=== PATIENT | male | born 1980 | race Caucasian/White ===

== ENCOUNTER → 2018-12-18 09:16 | Outpatient (CLI) | payer OTHER, SELFPAY ==
--- NOTE | 2018-12-18 09:21 | DI.RAD.S_ITS ---
PROCEDURE: XR FOOT LT MIN 3V INDICATIONS: crush injury, pain and swelling, r/o fx TECHNIQUE: 3 views of the foot were acquired. COMPARISON: [facility], , FOOT 3V RIGHT, 06/11/2015, 12:20. FINDINGS: Bones: No fractures or dislocations. No widening of the Lisfranc joint on these nonweightbearing radiographs. No suspicious bony lesions. Well-circumscribed fragmented fibular sesamoid bone. Soft tissues: No tibiotalar joint effusion. Mild swelling over the dorsal aspect of the midfoot. Or Achilles tendon appears normal. IMPRESSION: No acute osseous abnormality. Dictated by: Bob Meza M.D. on 12/18/2018 at 9:37 Approved by: Bob Meza M.D. on 12/18/2018 at 9:39
== END ==
PROVIDERS: PCP Family Medicine; Visit Provider Physician Assistant
DX: S97.82XA Crushing injury of left foot, initial encounter (principal); X58.XXXA Exposure to other specified factors, initial encounter
CPT/HCPCS: 73630

== ENCOUNTER 2022-03-07 22:54 | Emergency (ER) | payer OTHER, SELFPAY ==
[2022-03-07 22:59] VITALS: BP 157/86; PULSE 76; RESP 18; TEMP 36.4; O2SAT 97; BMI 28.8
--- NOTE | 2022-03-07 23:54 | ED_ITS ---
HPI - Ear Problem General Chief complaint: Ear Stated complaint: pain left ear/sinus/jaw x2 days Time Seen by Provider: 03/07/22 23:54 Source: patient Mode of arrival: Ambulatory Limitations: no limitations History of Present Illness HPI Narrative: This is a 41-year-old male with no reported medical issues who is had left ear pain for the past 2 days which he states radiates a little bit to his jaw as well. Patient states pain started in his ear. He states it has not been decreased in sound, he does have issues he states with ear wax and has been irrigated on both sides several times in the past. He tried ibuprofen, aspirin and Tylenol and pain will wax and wane intensity but he is unable to sleep tonight so presents for evaluation. Denies swelling, denies any skin changes, no redness, no warmth, no fevers. Denies nausea or vomiting. No throat discomfort or drainage. Patient states he is had a little bit of nasal congestion recently. He denies any cough or cold. He denies any other symptoms. No dizziness or vomiting. Related Data Previous Rx's Medication Instructions Recorded [id number] 3.5 4 drp EAR-LEFT QID 7 days #10 mL 03/08/22 mg/mL-10,000 unit/mL-1 % ear solution Allergies Allergy/AdvReac Type Severity Reaction Status Date / Time No Known Drug Allergies Allergy Verified 12/18/18 10:44 Review of Systems Review of Systems ROS Unobtainable: All systems reviewed & are unremarkable except as noted in HPI and below Patient History Social History Smoking Status: Never smoker Smoking Status: Never smoker alcohol intake frequency: 0-2 drinks per day Substance Use Type: marijuana Exam Narrative Exam Narrative: GEN: well nourished, well appearing male, alert and oriented x 3, patient appears to be in mild distress. HEENT: Atraumatic, pupils are equal round reactive to light, extraocular movements are intact, nares are clear, patient cerumen on the right, unable to visualize TM, patient has cerumen on the left was able to extract about half but unable to visualize TM, patient does not have any pain with movement of the tragus, no pain with movement of the pinna, no swelling or erythema of the canal is appreciated from what I can visualize,Throat is clear without any exudates, erythema, tonsillar enlargement or uvular deviation HEART: Regular rate and rhythm without murmur, clicks, rubs. LUNGS:Lungs clear to auscultation, no wheezes, rales, crackles, chest moves symmetrically ABD:bowel sounds normal, soft, non-tender, no guarding, rebound, rigidity, no masses noted, no hepatosplenomegaly MSCL: Non-tender, no muscle atrophy, muscles strength 5/5 upper and lower extremities, full range of motion, normal gait NEURO:CN 2-12 intact, sensation normal Initial Vital Signs Initial Vital Signs: Vital Signs Temperature 97.6 F 03/07/22 22:59 Pulse Rate 76 03/07/22 22:59 Respiratory Rate 18 03/07/22 22:59 Blood Pressure 157/86 H 03/07/22 22:59 Pulse Oximetry 97 03/07/22 22:59 Oxygen Delivery Method 03/07/22 22:59 Course Orders Ordered: Discontinued Medications Hydrocodone Bitart/Acetaminophen (Hydrocodone/Acet 5/325 Prepack) 1 bottle MISC SEEINSTR ONE Stop: 03/07/22 23:55 Last Admin: 03/08/22 00:04 Dose: 1 bottle Documented By: JO Carbamide Peroxide (Carbamide Peroxide Otic 15 Ml) 4 drops EAR-LEFT NOW ONE Stop: 03/08/22 00:08 Last Admin: 03/08/22 00:11 Dose: 4 drops Documented By: FATOUMATA Neomycin/Polymyxin/Hydrocortisone (Neomy/Polym B/Hc Otic 10 Ml) 4 drops EAR-L EFT NOW ONE Stop: 03/08/22 01:15 Last Admin: 03/08/22 01:17 Dose: Not Given Documented By: JO Reevaluation(s) Reevaluation #1: Patient was irrigated additionally by nursing and had cerumen on recheck patient's TM intact, there is good light reflex no erythema of the eardrum itself no sign of otitis media. There is some irritation of the canal at the base which is more likely irritation and not infection. Time: 01:15 Vital Signs Vital signs: Vital Signs - 8 hr 03/07/22 22:59 03/08/22 01:26 Temperature 97.6 F Pulse Rate 76 68 Respiratory Rate 18 Blood Pressure 157/86 H 133/92 H Pulse Oximetry 97 97 Oxygen Delivery Method Room Air Room Air Medical Decision Making MDM Narrative Medical decision making narrative: This is a 41-year-old male with left ear pain for the past 2 days on examination appears to be impacted was able to remove some with curette but required irrigation as well. Your was irrigated in its entirety able to see the TM quite well and there is no signs of infection or at least otitis media. There is some irritation of the canal adjacent Discharge Plan Departure Patient Disposition: Home Clinical Impression: Cerumen impaction Instructions: Cerumen Impaction Activity Restrictions/Additional Instructions: Follow up with for recheck if your pain has not resolved over the next 24-48 hours. I would recommend using Debrox drops or similar in your ear and irrigating with warm saline if you have future impactions or suspect that you have them to keep your ear canals from being impacted by cerumen (earwax) The canal is slightly irritated it is likely not infected but you can use 4 drops to the left ear 4 times daily while awake for 7 days if your pain is persisting. Please return for worsening pain, bloody drainage, loss or decreased hearing, swelling of your ear, face, or other new or concerning changes Prescriptions: New [id number]-[id number]-RJ 3.5-10,000-1 mg/mL-unit/mL-% solution 4 drp EAR-LEFT QID 7 Days Qty: 10 0RF Referrals: Priya Maldonado MD [Primary Care Provider] -
[2022-03-08] MEDS: HYDROCODONE/ACET 5/325 PREPACK 1 BOTTLE MISC (00:04)
[2022-03-08] MEDS: CARBAMIDE PEROXIDE OTIC 15 ML 4 DROPS EAR-LEFT (00:11)
[2022-03-08 01:26] VITALS: BP 133/92; PULSE 68; O2SAT 97
== END 2022-03-08 01:27 | disposition home or self-care (01) ==
PROVIDERS: Emergency Provider Emergency Medicine; PCP Family Medicine
DX: H61.22 Impacted cerumen, left ear (principal)
CPT/HCPCS: 99282

== ENCOUNTER 2024-07-19 07:18 | Observation (INO) | payer OTHER, SELFPAY ==
[2024-07-19] VITALS (23 sets, daily range): BP systolic 97–155; BP diastolic 60–103; PULSE 76–129; RESP 16–24; TEMP 36.1–39.1; O2SAT 92–99; BMI 33.5; BMI 29.5
--- NOTE | 2024-07-19 | PATH_ITS ---
[facility] Accession Number: [id number] No. of containers..01 Tissue . 01 Material submitted: . appendix - APPENDIX . 01 Diagnosis: APPENDIX, APPENDECTOMY: Acute suppurative appendicitis and reactive changes. Negative for dysplasia and malignancy. MRV 07/24/2024 1250 Local . 01 Electronically signed: . Kami Holt MD, Pathologist NPI- [id number] . 01 Gross description: . Received in formalin with two identifiers and appendix, is a lew-bernal, vermiform appendix, 11.4 x 1.1 cm with mesoappendix extending out to 3.2 cm. The margin is inked blue. The lumen contains red-brown, semisolid to liquid fecal material. The lumen measures up to 0.9 cm in greatest dimension. The tee average 0.1 cm thick with no perforation or lesions identified. Mine Supervisor sections to include the margin, entire bisected distal tip, and cross-section are submitted in A1. ([id number]) /MRV 07/20/2024 1619 Local . 01 Pathologist provided ICD-10: K35.80 . 01 CPT . 200303 Specimen Comment: A courtesy copy of this report has been sent to [facility] Pathology Performed at: [address] [facility], [place], [place] [id number] MD Salvador Obregon MD Phone: [phone]
--- NOTE | 2024-07-19 07:27 | ED_ITS ---
HPI - Abdominal Pain General Chief Complaint: Abdominal Pain Stated Complaint: Stomach pain ,SOB Time Seen by Provider: 07/19/24 07:21 History of Present Illness HPI narrative: Patient awoke yesterday morning with reproducible right lower quadrant pain that is migrated suprapubic. Has been urinating more than usual. However, no hematuria. No fever chills. Did have nausea and vomiting. No testicular or penile pain. Denies any abdominal surgical history. There is reproducible McBurney point tenderness. No back pain or flank pain. Related Data Home Medications Medication Instructions Recorded Confirmed omeprazole 20 mg capsule,delayed 20 mg PO DAILY 07/19/24 07/19/24 release Previous Rx's Medication Instructions Recorded amoxicillin 500 mg-potassium 1 tab PO Q12H #10 tabs 07/20/24 clavulanate 125 mg tablet (Augmentin) hydrocodone 5 mg-acetaminophen 325 1 tab PO Q8H PRN pain #10 tabs 07/20/24 mg tablet Allergies Allergy/AdvReac Type Severity Reaction Status Date / Time No Known Drug Allergies Allergy Verified 12/18/18 10:44 Review of Systems Review of Systems Narrative: GENERAL: Negative chills, fatigue, malaise, fever, sweats. HEENT: Negative sinus pain, ear pain, sore throat RESPIRATORY: Negative dyspnea, cough CARDIOVASCULAR: Negative chest pain, palpitations GASTROINTESTINAL: Positive vomiting, nausea, abdominal pain : Negative dysuria, positive frequency, negative hematuria MUSCULOSKELETAL: Negative muscle or bony pain SKIN: Negative rash, skin lesions NEUROLOGIC: Negative weakness, numbness ROS Unobtainable: All systems reviewed & are unremarkable except as noted in HPI and below Patient History Social History household members: spouse and children alcohol intake: current alcohol intake frequency: 0-2 drinks per day Exam Narrative Exam Narrative: GENERAL: in no distress, not toxic not dyspneic HEAD: Normocephalic. EYES: Pupils equal round ENT: Mucous membranes moist. NECK: Trachea midline. CARDIOVASCULAR: Regular rate and rhythm RESPIRATORY: Clear to auscultation. Breath sounds equal bilaterally. No wheezes, rales, or rhonchi. GASTROINTESTINAL: Abdomen soft, reproducible McBurney point tenderness, no peritoneal signs no guarding or rebound. No pain out of portion exam. EXTREMITIES: No gross deformities. BACK: No flank tenderness. NEURO: AOx4. Clear speech SKIN: Warm and dry PSYCH: Not anxious, is cooperative Initial Vital Signs Initial Vital Signs: Vital Signs Pulse Rate 129 H 07/19/24 07:20 Respiratory Rate 18 07/19/24 07:20 Pulse Oximetry 98 07/19/24 07:20 Oxygen Delivery Method Room Air 07/19/24 07:20 Course Orders Ordered: Discontinued Medications Acetaminophen (Acetaminophen 325 Mg Tablet) 650 mg PO Q6H MARCELLA Last Admin: 07/19/24 13:37 Dose: Not Given Documented By: HINAK Acetaminophen (Acetaminophen 325 Mg Tablet) 650 mg PO Q6H PRN PRN Reason: Fever/Mild Pain (1-3) Last Admin: 07/19/24 23:17 Dose: 650 mg Documented By: AT Hydrocodone Bitart/Acetaminophen (Hydrocodone/Acet 5/325 Tablet) 1 tab PO Q4H PRN PRN Reason: Pain, Moderate (4-6) Hydrocodone Bitart/Acetaminophen (Hydrocodone/Acet 5/325 Tablet) 2 tab PO Q4H PRN PRN Reason: Pain, Severe (7-10) Hydrocodone Bitart/Acetaminophen (Hydrocodone/Acet 5/325 Tablet) 1 tab PO Q4HR PRN PRN Reason: Pain, Moderate (4-6) Last Admin: 07/20/24 16:28 Dose: 1 tab Documented By: Admin: 07/20/24 10:47 Dose: 1 tab Documented By: SIMBA Hydrocodone Bitart/Acetaminophen (Hydrocodone/Acet 5/325 Tablet) 2 tab PO Q4HR PRN PRN Reason: Pain, Severe (7-10) Benzocaine (Benzocaine/Menthol 1 Maria Fernanda Pkt) 1 each PO PRN PRN PRN Reason: Sore Throat Bupivacaine HCl (Bupivacaine 0.5% (Pf) 30 Ml Vial) 30 ml INJ NOW ONE Stop: 07/19/24 11:12 Last Admin: 07/19/24 11:12 Dose: 30 ml Documented By: RT Enoxaparin Sodium (Enoxaparin 40 Mg/0.4 Ml Syringe) 40 mg SUBCUT DAILY MARCELLA Hydromorphone HCl (Hydromorphone 1 Mg Inj) 0 mg IV Q5MIN PRN PRN Reason: Pain, Moderate (4-6) Hydromorphone HCl (Hydromorphone 1 Mg Inj) 0 mg IV Q5MIN PRN PRN Reason: Pain, Severe (7-10) Hydromorphone HCl (Hydromorphone 1 Mg Inj) 0 mg IV Q5MIN PRN PRN Reason: Pain, Mild (1-3) Hydromorphone HCl (Hydromorphone 0.5 Mg Inj) 0.5 mg IV Q2H PRN PRN Reason: Pain, Severe (7-10) Hydromorphone HCl (Hydromorphone 0.5 Mg Inj) 0.5 mg IV Q2H PRN PRN Reason: Pain, Severe (7-10) Sodium Chloride (Normal Saline 0.9%) 1,000 mls @ 1,000 mls/hr IV BOLUS ONE Stop: 07/19/24 08:24 Last Infusion: 07/19/24 08:55 Dose: Infused Documented By: Admin: 07/19/24 07:40 Dose: 1,000 mls/hr Documented By: LACIE Piperacillin Sod/Tazobactam (Sod 4.5 gm/ Sodium Chloride) 100 mls @ 200 mls/hr IV NOW ONE Stop: 07/19/24 09:01 Last Infusion: 07/19/24 09:57 Dose: Infused Documented By: Admin: 07/19/24 09:20 Dose: 200 mls/hr Documented By: LACIE Lactated Ringer's (Lactated Ringers) 1,000 mls @ 42 mls/hr IV CONT MARCELLA Last Admin: 07/19/24 10:26 Dose: 42 mls/hr Documented By: ISMAEL Acetaminophen (Ofirmev) 1,000 mg in 100 mls @ 400 mls/hr IV NOW ONE Stop: 07/19/24 10:38 Last Infusion: 07/19/24 10:40 Dose: Infused Documented By: Admin: 07/19/24 10:25 Dose: 400 mls/hr Documented By: ISMAEL Piperacillin Sod/Tazobactam (Sod 3.375 gm/ Sodium Chloride) 100 mls @ 25 mls/hr IV NOW ONE Stop: 07/19/24 11:16 Last Infusion: 07/19/24 11:15 Dose: Infused Documented By: Admin: 07/19/24 10:55 Dose: 25 mls/hr Documented By: SAAD Lactated Ringer's (Lactated Ringers) 1,000 mls @ 125 mls/hr IV CONT MARCELLA Last Admin: 07/19/24 13:38 Dose: Not Given Documented By: LILLIAN Piperacillin Sod/Tazobactam (Sod 3.375 gm/ Sodium Chloride) 100 mls @ 25 mls/hr IV Q8H MARCELLA Dextrose/Lactated Ringer's (Dextrose 5%-Lactated Ringers) 1,000 mls @ 125 mls/hr IV CONT MARCELLA Last Infusion: 07/20/24 00:00 Dose: Infused Documented By: Admin: 07/19/24 13:26 Dose: 125 mls/hr Documented By: LILLIAN Piperacillin Sod/Tazobactam (Sod 3.375 gm/ Sodium Chloride) 100 mls @ 25 mls/hr IV Q8H [facility] Last Infusion: 07/20/24 16:26 Dose: Infused Documented By: Admin: 07/20/24 12:14 Dose: 25 mls/hr Documented By: Infusion: 07/20/24 08:28 Dose: Infused Documented By: Admin: 07/20/24 04:05 Dose: 25 mls/hr Documented By: Infusion: 07/20/24 02:28 Dose: Infused Documented By: Admin: 07/19/24 21:33 Dose: 25 mls/hr Documented By: ROSA Ketorolac Tromethamine (Ketorolac 30 Mg/Ml Vial) 15 mg IV NOW ONE Stop: 07/19/24 07:26 Last Admin: 07/19/24 07:40 Dose: 15 mg Documented By: LACIE Naloxone HCl (Naloxone 0.4 Mg/Ml Vial) 0.2 mg IV Q2MIN PRN PRN Reason: Opiate Reversal Ondansetron HCl (Ondansetron 4 Mg/2 Ml Inj) 4 mg IV NOW ONE Stop: 07/19/24 07:26 Last Admin: 07/19/24 07:40 Dose: 4 mg Documented By: LACIE Ondansetron HCl (Ondansetron 4 Mg/2 Ml Inj) 4 mg IV Q4HR PRN PRN Reason: Nausea And Vomiting Oxycodone HCl (Oxycodone Ir 5 Mg Tablet) 5 mg PO PACUNOW PRN PRN Reason: Mild or moderate pain Vital Signs Vital signs: Vital Signs - 8 hr 07/19/24 07:20 07/19/24 07:21 07/19/24 07:27 Temperature 98 F Pulse Rate 129 H 118 H Respiratory Rate 18 20 Blood Pressure 139/90 139/90 Pulse Oximetry 98 95 Oxygen Delivery Method Room Air Room Air 07/19/24 07:42 07/19/24 07:42 07/19/24 08:00 Temperature Pulse Rate 107 H 110 H Respiratory Rate 18 Blood Pressure 139/89 Pulse Oximetry 95 94 Oxygen Delivery Method Room Air Room Air 07/19/24 08:30 07/19/24 08:48 Temperature Pulse Rate 102 H Respiratory Rate Blood Pressure 123/60 Pulse Oximetry 94 Oxygen Delivery Method Room Air MDM - Abdominal Pain Lab Data 07/20/24 05:51 07/20/24 05:51 Labs: Lab Results 07/19/24 Range/Units 07:30 WBC 18.0 H (4.5-11.0) X10^3/uL RBC 5.27 (4.5-5.9) X10^6/uL Hgb 16.8 (13.5-17.5) g/dL Hct 47.5 (41-53) % MCV 90.0 (80-100) fL MCH 31.8 (26-34) PG MCHC 35.3 (30-36) % RDW 13.1 (11.6-14.8) % Plt Count 298 (150-400) X10^3/uL Neut % (Auto) 83.8 H (50-75) % Lymph % (Auto) 10.1 L (25-40) % [place] % (Auto) 5.7 (3-14) % Eos % (Auto) 0.1 L (2-4) % Baso % (Auto) 0.3 (0-2) % Neut # (Auto) 00798 H (2483-3533) /uL Lymph # (Auto) 1800 (6216-3165) /uL [place] # (Auto) 1000 H (0-900) /uL Eos # (Auto) 0 (0-450) /uL Baso # (Auto) 0 (0-100) /uL Sodium 140 (137-145) mmol/L Potassium 3.9 (3.4-5.1) mmol/L Chloride 104 (98-107) mmol/L Carbon Dioxide 24 (22-32) mmol/L BUN 10 (9-20) mg/dL Creatinine 0.99 (0.66-1.25) mg/dL Estimated GFR > 60 (>60) mL/min BUN/Creatinine Ratio 10.1 (6-22) Glucose 131 H (70-99) mg/dL Calcium 9.7 (8.4-10.2) mg/dL Total Bilirubin 1.3 (0.2-1.3) mg/dL AST 29 (17-59) IU/L ALT 89 H (<50) IU/L Alkaline Phosphatase 65 (38-126) U/L Total Protein 8.0 (6.3-8.2) g/dL Albumin 4.7 (3.5-5.0) g/dL Globulin 3.3 (1.7-4.1) g/dL Albumin/Globulin Ratio 1.4 (1.0-2.8) Imaging Data CT scan - abdomen/pelvis: Radiologist's Impression: [place] [address] CT Scan Report Signed Patient: Surya Hernandes MR#: [id number] : 1980 Acct:[id number] Age/Sex: 44 / M Date of Service: 07/19/24 Loc: ED Accession Number: [id number] Procedure: CT abdomen pelvis w con Ordering Provider: Giuseppe Lopez MD PROCEDURE: CT ABDOMEN PELVIS W CON INDICATIONS: IV contrast only/right lower quadrant pain TECHNIQUE: After the administration of intravenous contrast, axial sections acquired from the lung bases to the pubic symphysis. Coronal and sagittal reformats were performed. For radiation dose reduction, the following was used: automated exposure control, adjustment of mA and/or kV according to patient size. COMPARISON: None. FINDINGS: Image quality: Diagnostic. Lower Chest: No significant findings. ABDOMEN: Liver: Moderate hepatic steatosis. Suspected vascular shunt versus small hemangioma with vascular shunt in segment 6 of the liver. Smooth contour. Early edge blunting. Gallbladder: No radiopaque gallstones or wall thickening. Biliary ducts: No biliary dilation. Pancreas: No ductal dilation. Spleen: Size is within normal limits. Adrenal Glands: No adrenal nodules. Kidneys and Ureters: No hydronephrosis. No solid mass. No complex renal cystic lesion which requires follow up. Stomach and Bowel: The appendix is dilated, with diffuse wall thickening. Diameter measures up to 1.1 centimeter. Obstructing appendicoliths at the base measuring 1 centimeter (series 2, image 129). There is a small section of the wall which does not demonstrate enhancement (series 2, image 147). Submucosal fat deposition within the terminal ileal wall. Peritoneum: Periappendiceal fat stranding. No adjacent free air. Ventral Wall: Small umbilical hernia containing fat. Abdominal Nodes: No retroperitoneal or mesenteric adenopathy by size criteria. Vessels: Aorta and inferior vena cava are normal in size. PELVIS: Pelvic Organs: Unremarkable. Bladder: No bladder wall thickening, accounting for underdistention. Pelvic Nodes: No enlarged lymph nodes. Miscellaneous: No inguinal hernias are seen. Bones: No aggressive osseous abnormality. IMPRESSION: Acute appendicitis caused by an obstructing appendicolith measuring 1 centimeters. A small section of the wall does not demonstrate enhancement, concerning for early necrosis. No evidence of perforation or abscess at this time. At least moderate hepatic steatosis. Submucosal fat deposition within the terminal ileum wall. Findings can be seen in the setting of chronic inflammatory bowel disease. Correlate with the current symptoms. Dictated by: Alex Pham M.D. on 07/19/2024 at 8:20 Approved by: Alex Pham M.D. on 07/19/2024 at 8:24 [facility] Narrative Medical decision making narrative: Patient awoke yesterday morning with reproducible right lower quadrant pain that is migrated suprapubic. Has been urinating more than usual. However, no hematuria. No fever chills. Did have nausea and vomiting. No testicular or penile pain. Denies any abdominal surgical history. There is reproducible McBurney point tenderness. No back pain or flank pain. After history and exam, CBC CMP urinalysis CT abdomen pelvis Toradol Zofran normal saline [facility] Medical records reviewed: No recent visit for this complaint Differential considered: Includes but not limited to appendicitis ureteral stone kidney stone UTI pyelonephritis colitis Lab Test results independently reviewed as above. Pertinent findings: WBC 18 Imaging studies independently reviewed: CT abdomen pelvis acute appendicitis Consultations: 9:00 a.m.. Spoke with General surgery, dr boyer, who will admit patient, NPO since 529 this morning Re-evaluations: 9:05 a.m.. Spoke with patient, at bedside, acute appendicitis is the diagnosis. They understand will need surgery today. NPO since 529 this morning Discussion: Appropriate for picture of acute appendicitis, antibiotics have been started. Pain is controlled. General surgery has been contacted Diagnosis: Acute appendicitis Discharge Plan Departure Patient Disposition: Admitted as Observation Clinical Impression: Acute appendicitis Qualifiers: Acute appendicitis type: unspecified acute appendicitis type Qualified Code(s): K35.80 - Unspecified acute appendicitis Admit Date/Time: 07/19/24 09:00 Admit Provider: Troy Boyer
[2024-07-19 07:40] LABS: Add Manual Diff / Slide Review NO; Basophils Absolute Auto 0 /uL (0-100); Basophils Percent Auto 0.3 % (0-2); Eosinophils Absolute Auto 0 /uL (0-450); Eosinophils Percent Auto 0.1 % (2-4); Hematocrit 47.5 % (41-53); Hemoglobin 16.8 g/dL (13.5-17.5); Lymphocytes Absolute Auto 1800 /uL (1100-4500); Lymphocytes Percent Auto 10.1 % (25-40); Mean Corpuscular HGB Conc 35.3 % (30-36); Mean Corpuscular Hemoglobin 31.8 PG (26-34); Monocytes Absolute Auto 1000 /uL (0-900); Monocytes Percent Auto 5.7 % (3-14); Neutrophils Absolute Auto 15100 /uL (1500-7000); Neutrophils Percent Auto 83.8 % (50-75); Platelet Count 298 X10^3/uL (150-400); Red Blood Cell Count 5.27 X10^6/uL (4.5-5.9); Red Cell Distribution Width 13.1 % (11.6-14.8)
[2024-07-19] MEDS: SODIUM CHLORIDE 0.9% 1,000 ML 1000 ML IV (07:40)
[2024-07-19] MEDS: KETOROLAC 30 MG/ML VIAL 15 MG IV (07:40)
[2024-07-19] MEDS: ONDANSETRON 4 MG/2 ML INJ IV (07:40)
[2024-07-19 07:50] LABS: Alanine Aminotransferase 89 IU/L (<50); Albumin 4.7 g/dL (3.5-5.0); Albumin Globulin Ratio 1.4 (1.0-2.8); Alkaline Phosphatase 65 U/L (38-126); Aspartate Aminotransferase 29 IU/L (17-59); BUN Creatinine Ratio 10.1 (6-22); Bilirubin Total 1.3 mg/dL (0.2-1.3); Blood Urea Nitrogen 10 mg/dL (9-20); Calcium 9.7 mg/dL (8.4-10.2); Carbon Dioxide 24 mmol/L (22-32); Chloride 104 mmol/L (98-107); Estimated Glomerular Filt Rate > 60 mL/min (>60); Globulin 3.3 g/dL (1.7-4.1); Glucose 131 mg/dL (70-99); HEMOLYSIS < 15 (0-50); Potassium 3.9 mmol/L (3.4-5.1); Sodium 140 mmol/L (137-145)
[2024-07-19] MEDS: PIPERACILLIN/TAZO 4.5 GM in SODIUM CHLORIDE 0.9% 100 ML IV (09:20)
[2024-07-19 09:26] LABS: Appearance Urine UA CLEAR; Bilirubin Urine UA NEGATIVE (NEGATIVE); Color Urine UA YELLOW; Glucose Urine UA NEGATIVE (Negative); Ketones Urine UA NEGATIVE (NEGATIVE); Leukocyte Esterase Urine UA NEGATIVE (NEGATIVE); Nitrite Urine UA NEGATIVE (Negative); Occult Blood Urine UA NEGATIVE (Negative); Protein Urine UA TRACE (Negative); pH Urine UA 6.5 (4.5-8.0)
--- NOTE | 2024-07-19 09:39 | PC.NURSE ---
blood cx x 1 set drawn via RAC PIV - no Dominic used
[2024-07-19 09:45] LABS: Bacteria Urine None Seen; Culture Indicated Urine Cult Not Indicated; RBC Urine None Seen (0-5/HPF); Squamous Epithelial Cell Urine 0-1 /HPF (0-5/HPF); Urine Volume 10mL (spun); WBC Urine 0-1/HPF (0-5/HPF)
[2024-07-19] MEDS: ACETAMINOPHEN IV 1,000 MG/100 ML VIAL 400 MG IV (10:25)
[2024-07-19] MEDS: LACTATED RINGERS 1,000 ML 42 ML IV (10:26)
--- NOTE | 2024-07-19 10:37 | SUR.HOLD ---
Oral temperature 102.3. Anesthesia notified; orders received for IV Tylenol.
--- NOTE | 2024-07-19 10:40 | P.HP_ITS ---
History of Present Illness History of Present Illness Chief complaint: Stomach pain ,SOB Narrative: 42-year-old male with 24 hour history of abdominal pain which localized to his right lower quadrant. He presented to the ED where he was febrile and having rigors. White count was [address] demonstrated an enlarged edematous appendix with periappendiceal inflammatory changes. He is admitted for definitive management. [facility] Social History household members: spouse Smoking Status: Never smoker Meds Home Medications and Allergies Home Medications Medication Instructions Recorded Confirmed Type omeprazole 20 mg capsule,delayed 20 mg PO DAILY 07/19/24 07/19/24 History release Allergies Allergy/AdvReac Type Severity Reaction Status Date / Time No Known Drug Allergies Allergy Verified 12/18/18 10:44 Review of Systems Review of Systems Narrative: Comprehensive review of systems negative to direct questioning with the exception previously mentioned chronic conditions. Exam Vital Signs (past 8 hours): - 07/19/24 07:20 07/19/24 07:21 07/19/24 07:27 Temperature 98 F Pulse Rate 129 H 118 H Respiratory Rate 18 20 Blood Pressure 139/90 139/90 Pulse Oximetry 98 95 Oxygen Delivery Method Room Air Room Air 07/19/24 07:42 07/19/24 07:42 07/19/24 08:00 Temperature Pulse Rate 107 H 110 H Respiratory Rate 18 Blood Pressure 139/89 Pulse Oximetry 95 94 Oxygen Delivery Method Room Air Room Air 07/19/24 08:30 07/19/24 08:48 07/19/24 09:13 Temperature Pulse Rate 102 H 100 H Respiratory Rate 18 Blood Pressure 123/60 Pulse Oximetry 94 95 Oxygen Delivery Method Room Air 07/19/24 09:14 07/19/24 09:14 07/19/24 09:30 Temperature Pulse Rate 100 H 114 H Respiratory Rate 18 Blood Pressure 125/87 Pulse Oximetry 95 97 Oxygen Delivery Method Room Air 07/19/24 09:39 07/19/24 09:40 07/19/24 09:40 Temperature 98.9 F Pulse Rate 109 H Respiratory Rate 18 Blood Pressure 155/103 H Pulse Oximetry 99 Oxygen Delivery Method 07/19/24 10:26 Temperature 102.3 F H Pulse Rate 123 H Respiratory Rate 24 Blood Pressure 136/90 Pulse Oximetry 94 Oxygen Delivery Method Room Air Oxygen Delivery Method Room Air Narrative Exam Narrative: In general this is well-nourished well-developed male alert and oriented x3 in no acute distress. Head is normocephalic and atraumatic. Neck is supple. Back is without CVA or spinous process tenderness. Lungs are clear to auscultation. Chest is symmetric nontender with normal inspiratory and expiratory excursion. Heart has a regular rate and rhythm with no murmur or gallop. Abdomen is soft with normal bowel sounds. No distention. McBurney's tenderness is in evidence. Extremities manifests full range of motion. Neurological exam is nonfocal. Objective Labs 07/19/24 07:30 07/19/24 07:30 Labs: Laboratory Results - last 24 hr 07/19/24 07/19/24 07:30 09:13 WBC 18.0 H RBC 5.27 Hgb 16.8 Hct 47.5 MCV 90.0 MCH 31.8 MCHC 35.3 RDW 13.1 Plt Count 298 Neut % (Auto) 83.8 H Lymph % (Auto) 10.1 L [place] % (Auto) 5.7 Eos % (Auto) 0.1 L Baso % (Auto) 0.3 Neut # (Auto) 41056 H Lymph # (Auto) 1800 [place] # (Auto) 1000 H Eos # (Auto) 0 Baso # (Auto) 0 Sodium 140 Potassium 3.9 Chloride 104 Carbon Dioxide 24 BUN 10 Creatinine 0.99 Estimated GFR > 60 BUN/Creatinine Ratio 10.1 Glucose 131 H Calcium 9.7 Total Bilirubin 1.3 AST 29 ALT 89 H Alkaline Phosphatase 65 Total Protein 8.0 Albumin 4.7 Globulin 3.3 Albumin/Globulin Ratio 1.4 Urine Color Yellow Urine Appearance Clear Urine pH 6.5 Ur Specific [place] 1.010 Urine Protein Trace H Urine Glucose (UA) Negative Urine Ketones Negative Urine Occult Blood Negative Urine Nitrate Negative Urine Bilirubin Negative Urine Urobilinogen 1.0 Ur Leukocyte Esterase Negative Urine RBC None seen Urine WBC 0-1/hpf Ur Squamous Epith Cells 0-1 /hpf Urine Bacteria None seen Ur Culture Indicated? Cult not indicated Vol Urine Centrifuged 10ml (spun) Assessment & Plan Assessment and plan (1) Acute appendicitis: Qualifiers: Acute appendicitis type: unspecified acute appendicitis type Qualified Code(s): K35.80 - Unspecified acute appendicitis Status: Acute Plan I have recommended a laparoscopic attempt at appendectomy. Alternatives, risks and benefits were discussed in detail. Questions were answered. The patient desires to proceed as I have outlined. We will accommodate him when an OR can be made available this morning. Time-Based Coding :: [TOTAL MINUTES] spent with patient and on the chart (including review of chart, obtaining history, exam, reviewing outside data, placing orders, documenting exam and treatment plan, and counseling patient) on [DATE]. PROFEE Furniture Mover Driver Document charge(s): Yes
[2024-07-19] MEDS: PIPERACILLIN/TAZO 3.375 GM in SODIUM CHLORIDE 0.9% 100 ML IV ×2 (10:55→21:33)
--- NOTE | 2024-07-19 11:01 | SUR.OPER ---
Supine on padded OR bed, head on pillow, left arm padded and tucked at side, right arm on padded OR arm board and secured, legs uncrossed, safety belt at thigh, tape over blanket over lower legs .
[2024-07-19] MEDS: BUPIVACAINE 0.5% (PF) 30 ML VIAL INJ (11:12)
--- NOTE | 2024-07-19 11:51 | P.OP_ITS ---
Operative Date/Time/Diagnoses Date of procedure: 07/19/24 Time of procedure: 10:57 Pre-op diagnosis: Acute appendicitis Post-op diagnosis: same Procedure & Clinicians Procedure: Laparoscopic appendectomy with repair of umbilical hernia Same procedure as scheduled: Yes Indications: Acute appendicitis Surgeon: Troy Boyer Click Yes if Unassisted: Yes Anesthesia Type: General Operative Notes Findings: Acute appendicitis. 1 cm umbilical hernia. Closure Type: primary Specimen(s): other (Vermiform appendix) Estimated Blood Loss (mL): 10 Procedure in detail: After obtaining informed consent properly identifying the patient, the patient was transported to the operating room and was placed on the table in the supine position. General endotracheal anesthesia was induced and the abdomen was prepped and draped in the usual sterile manner. Time-out protocol was observed. A 15 blade was used to make a 2.5 cm curvilinear supraumbilical incision. This was carried with cautery down along the umbilical stalk to the level of the abdominal wall fascia. During this dissection and umbilical hernia was noted the proceeded about senior living up the umbilical stalk. Traction sutures of 0 Vicryl were placed on either side of midline above the umbilicus and a peritoneotomy was made under direct vision. The fasciotomy was carried through the cephalad margin of the umbilical hernia and the hernial contents were reduced. Peritoneotomy was made under direct vision and a 10 mm Bolanos cannula was passed and was secured by inflating the balloon at its tip. Pneumoperitoneum was instilled. A 5 mm 30 degree angled laparoscope was passed through the Bolanos. The posterior surface of the abdominal wall was visualized and 2 additional 5 mm ports were placed under direct laparoscopic vision. The 1st of these was in the infraumbilical midline 2[address] the umbilicus to the pubis. The 2nd was placed 2 fingerbreadths left of midline, midway between the umbilicus and the 1st 5 mm port. The appendix was visualized. The mesoappendix was taken sharply with the Liga Sure and the dissection was carried down to the confluence of the appendiceal base and cecal wall. The 5 mm 30 degree angled scope was withdrawn from the Bolanos and was passed through the left lower quadrant port. An echelon stapler was passed through the Bolanos and was applied across the confluence of the appendiceal base and cecal wall, was closed and fired. The LigaSure was withdrawn from the Bolanos and passed from the field. An Endo-Catch specimen extractor was passed through the Bolanos and an Endo-Catch specimen extractor was passed into the peritoneal cavity. The specimen was bagged under direct laparoscopic vision. The Bolanos balloon was deflated and the Bolanos, Endo-Catch and specimen were withdrawn from the supraumbilical port site as a unit. The specimen was passed from the field and the Bolanos and 5 mm 30 degree angled scope were restored to their original positions. The right iliac fossa operative field was inspected in minute detail. Perfect hemostasis was obtained with the LigaSure. The pelvic cul-de-sac was visualized, was copiously irrigated and all irrigant was evacuated. All laparoscopic equipment was withdrawn under direct laparoscopic vision. Pneumoperitoneum was evacuated and ports were withdrawn. The supraumbilical fascial defect was closed with a running 0 Prolene stitch. Field blocks of 0.5% Marcaine were instilled into the skin wounds which were then closed with a series of inverted deep dermal 3-0 Vicryl sutures and Dermabond. Dressings were applied. The patient tolerated the procedure well and was transported to the recovery room extubated and awake. Complications: none Post-operative Condition: stable Plan for aftercare: Discharged home on tolerant of p.o. is a, pain control is adequate and bacteremia ruled out.
[2024-07-19] MEDS: DEXTROSE 5%-LACTATED RINGERS 1,000 ML 125 ML IV (13:26)
[2024-07-19] MEDS: ACETAMINOPHEN 325 MG TABLET 650 MG PO (23:17)
[2024-07-20] MEDS: PIPERACILLIN/TAZO 3.375 GM in SODIUM CHLORIDE 0.9% 100 ML IV ×2 (04:05→12:14)
[2024-07-20 06:12] LABS: Add Manual Diff / Slide Review NO; Basophils Absolute Auto 100 /uL (0-100); Basophils Percent Auto 0.8 % (0-2); Eosinophils Absolute Auto 100 /uL (0-450); Eosinophils Percent Auto 0.4 % (2-4); Hematocrit 39.7 % (41-53); Hemoglobin 13.8 g/dL (13.5-17.5); Lymphocytes Absolute Auto 2400 /uL (1100-4500); Lymphocytes Percent Auto 18.1 % (25-40); Mean Corpuscular HGB Conc 34.8 % (30-36); Mean Corpuscular Hemoglobin 31.8 PG (26-34); Mean Corpuscular Volume 91.3 fL (80-100); Monocytes Absolute Auto 1500 /uL (0-900); Monocytes Percent Auto 11.1 % (3-14); Neutrophils Absolute Auto 9200 /uL (1500-7000); Neutrophils Percent Auto 69.6 % (50-75); Platelet Count 217 X10^3/uL (150-400); Red Blood Cell Count 4.35 X10^6/uL (4.5-5.9); White Blood Cell Count 13.2 X10^3/uL (4.5-11.0)
[2024-07-20 06:24] LABS: BUN Creatinine Ratio 14.8 (6-22); Blood Urea Nitrogen 12 mg/dL (9-20); Calcium 9.1 mg/dL (8.4-10.2); Carbon Dioxide 24 mmol/L (22-32); Chloride 107 mmol/L (98-107); Estimated Glomerular Filt Rate > 60 mL/min (>60); Glucose 105 mg/dL (70-99); HEMOLYSIS < 15 (0-50); Potassium 4.1 mmol/L (3.4-5.1); Sodium 139 mmol/L (137-145)
[2024-07-20 07:00] VITALS: O2SAT 97
[2024-07-20 08:49] VITALS: BP 126/84; PULSE 74; RESP 18; TEMP 36.9; O2SAT 97
[2024-07-20] MEDS: HYDROCODONE/ACET 5/325 TABLET 1 TAB PO ×2 (10:47→16:28)
--- NOTE | 2024-07-20 10:59 | CM.DANOTE ---
DCP Assessment Note: Pt is a 44yo male, resident of [place], is admitted s/p lap appendectomy. Pt lives in a house with his and children. Pt's Primary Care Provider is Dr. Timmy Delcid and insurance is [facility]. Reviewed chart and discussed with multidisciplinary team pt's medical status and initial discharge needs. DCP met w/patient at bedside; introduced self and role. Present in the room is pt's , Jose. Patient was found in bed, alert and oriented, cooperative with assessment. Pt confirmed living situation and good support in . Pt expressed preference in discharge home, no social needs identified. Pt has no hx of services in the community. Plan: Anticipating dc home with spouse to transport today, 07/20 or when medically cleared. CM team will follow closely for coordination of discharge plans. Daja Scott [facility] Discharge Planning/Care Management CM Discharge Assessment Start: 07/19/24 09:09 Freq: Status: Active Protocol: Document 07/20/24 10:57 MW (Rec: 07/20/24 10:59 MW [id number]) Discharge Planning Assessment Assigned Director Decision Support IOANA Farnsworth DPOA/Assigned Designee Name Rico Garcia Contact Information [phone] Advance Directives? No History Provided By Patient,Family Member,Medical Record Has Patient been admitted in last 30 No days? Prior Living Arrangements House Household Members spouse,children Type of transporation used prior to Drives own vehicle admit Independent with ADL's Yes Is patient alert and oriented? Yes Caregiver for Another Yes: Children Barriers to Discharge No Discharge Plan Home Referrals Initiated None needed Whiteboard Updated in Patient Room with Yes name and ext. # of Director Decision Support Comment [phone] Review Status In Process Please Provide Date Initial DC 07/20/24 Assessment Was Performed Next Review Type Continued Stay Review
--- NOTE | 2024-07-20 13:43 | PM.PN.IH.1 ---
Subjective Subjective Date Patient Seen: 07/20/24 Time Patient Seen: 13:46 Interval history: Feels well. Tolerating a diet and passing gas. Hopes to go home. Exam Vital Signs (past 8 hours): - 07/20/24 07:00 07/20/24 08:49 Temperature 98.5 F Pulse Rate 74 Respiratory Rate 18 Blood Pressure 126/84 Pulse Oximetry 97 97 Oxygen Flow Rate 0 Oxygen Delivery Method Room Air Oxygen Flow Rate 0 Narrative Exam Narrative: Abdomen is soft nontender Objective Labs 07/20/24 05:51 07/20/24 05:51 Labs: Laboratory Results - last 24 hr 07/20/24 05:51 WBC 13.2 H RBC 4.35 L Hgb 13.8 Hct 39.7 L MCV 91.3 MCH 31.8 MCHC 34.8 RDW 13.0 Plt Count 217 Neut % (Auto) 69.6 Lymph % (Auto) 18.1 L [place] % (Auto) 11.1 Eos % (Auto) 0.4 L Baso % (Auto) 0.8 Neut # (Auto) 9200 H Lymph # (Auto) 2400 [place] # (Auto) 1500 H Eos # (Auto) 100 Baso # (Auto) 100 Sodium 139 Potassium 4.1 Chloride 107 Carbon Dioxide 24 BUN 12 Creatinine 0.81 Estimated GFR > 60 BUN/Creatinine Ratio 14.8 Glucose 105 H Calcium 9.1 PFSH Social History household members: spouse and children Smoking Status: Never smoker alcohol intake: current Assessment & Plan Assessment and plan (1) Acute appendicitis: Qualifiers: Acute appendicitis type: unspecified acute appendicitis type Qualified Code(s): K35.80 - Unspecified acute appendicitis Status: Acute Plan Home after next dose of IV Zosyn on oral Augmentin for 5 days Time-Based Coding :: [TOTAL MINUTES] spent with patient and on the chart (including review of chart, obtaining history, exam, reviewing outside data, placing orders, documenting exam and treatment plan, and counseling patient) on [DATE]. Quality VTE Deep Vein Thrombosis/Pulmonary Embolism Present on Admission: No IH PROFEE Heater Operator Document charge(s): No
--- NOTE | 2024-07-20 16:53 | PC.NURSE ---
D/c instructions reviewed with pt. Discussed ways to decrease constipation since pt will be taking a PRN narcotic. IV removed. Pt exited via w/c with KEEPER HELPER to private vehicle.
== END 2024-07-20 16:55 | disposition home or self-care (01) ==
LOC: ED 07:21 → AC 09:02
PROVIDERS: Admitting Provider Surgery; Emergency Provider Emergency Medicine; PCP Family Medicine; Referring Provider Emergency Medicine; Visit Provider Surgery
PROC: 0DTJ4ZZ Resection of Appendix, Percutaneous Endoscopic Approach (ICD-10-PCS; CPT 44970; principal; 2024-07-19 13:00)
DX: K35.80 Unspecified acute appendicitis (principal); K42.9 Umbilical hernia without obstruction or gangrene
CPT/HCPCS: 44970; 36415; 74177; 80048; 80053; 81001; 85025; 96361; 96365; 96366; 96375; 99284; G0378; J0131; J0330; J1100; J1885; J2250; J2405; J2543; J2704; J3010; J7121; Q9967